=== PATIENT | female | born 1940 | race Caucasian/White ===

== ENCOUNTER 2017-09-02 09:16 | Emergency (ER) | payer MEDICARE, BC ==
[~2017-09-02] VITALS: Ht 157.5 cm; Wt 113.9 kg
[~2017-09-02 09:16] MED LIST: ALLO100T PO; ASPI-482 PO; ATEN50TA PO; CARV3.12 PO; CLOP75TA57 PO; COLC25PO PO; FENO48TA16 PO; HYDR25TA9 PO; METF500T4 PO; OMEP20TA8 PO; TICA90TA PO
--- NOTE | 2017-09-02 09:19 | PHYS DOC ---
Past Medical History Past Medical History: Diabetes-Type II, Heart Disease, Hypertension Additional Past Medical Histor: REFLUX, DIABETIC,HTN, GOUT, CIRROSSIS Past Surgical History: Other Additional Past Surgical Histo: Cardiac stent placed Alcohol Use: None Drug Use: None Adult General Chief Complaint Chief Complaint: HYPERTENSION HPI HPI Patient is a 77 year old female who presents with elevated blood pressure and celiac she's to pass out last night. She said this happened around 11:00 she tried to stand up she got very lightheaded dizzy her boyfriend helped her to the floor, she had to crawl to the bed and then she called the bed and felt better. She refused to be taken to the ER at that time. This morning she got up she felt better she had a mild headache that she states is in the posterior aspect of her head, she checked her blood pressure this morning it was in the 150/1002, and the third time was 180/103. She took 2 of her hydrochlorothiazide tablets and 2 of her Norvasc tablets. Her Hydrocort thiazide her 25 mg and her Norvasc is 2.5. She presents to ER with no other complaints. She denies any chest pain shortness of breath nausea vomiting lightheadedness dizziness. She does have her chronic arthritis pain in her right hand and left shoulder but she states that's normal for her. Her blood pressure upon arrival is 135/80. Review of Systems Review of Systems Constitutional: Denies fever or chills [] Eyes: Denies change in visual acuity, redness, or eye pain [] HENT: Denies nasal congestion or sore throat [] Respiratory: Denies cough or shortness of breath [] Cardiovascular: No additional information not addressed in HPI [] GI: Denies abdominal pain, nausea, vomiting, bloody stools or diarrhea [] : Denies dysuria or hematuria [] Musculoskeletal: Denies back pain, positive for multiple joint pains secondary to arthritis. Integument: Denies rash or skin lesions [] Neurologic: Denies headache, focal weakness or sensory changes [] Endocrine: Denies polyuria or polydipsia [] Current Medications Current Medications Current Medications Medications (Trade) Dose Ordered Sig/Ryan Start Time Stop Time Status Last Admin Dose Admin Magnesium Sulfate/ Dextrose 100 ml @ 100 mls/hr 1X ONCE 09/02/17 11:30 09/02/17 12:29 Allergies Allergies Allergies Coded Allergies Type Severity Reaction Last Updated Verified bilastine Allergy Unknown "I couldn't breathe. I was so short of breath." 02/15 Yes Physical Exam Physical Exam Constitutional: Well developed, well nourished, no acute distress, non-toxic appearance. [] HENT: Normocephalic, atraumatic, bilateral external ears normal, oropharynx moist, no oral exudates, nose normal. [] Eyes: PERRLA, EOMI, conjunctiva normal, no discharge. [] Neck: Normal range of motion, no tenderness, supple, no stridor. [] Cardiovascular:Heart rate regular rhythm, no murmur [] Lungs & Thorax: Bilateral breath sounds clear to auscultation [] Abdomen: Bowel sounds normal, soft, no tenderness, no masses, no pulsatile masses. [] Skin: Warm, dry, no erythema, no rash. [] Back: No tenderness, no CVA tenderness. [] Extremities: No tenderness, no cyanosis, no clubbing, ROM intact, no edema. [] Neurologic: Alert and oriented X 3, normal motor function, normal sensory function, no focal deficits noted. [] Psychologic: Affect normal, judgement normal, mood normal. [] Current Patient Data Vital Signs Vital Signs Date Time Temp Pulse Resp B/P (MAP) Pulse Ox O2 Delivery O2 Flow Rate FiO2 09/02/17 10:32 85 20 97 09/02/17 09:31 97.9 137/81 (99) Room Air 97.9 Lab Values Laboratory Tests Test 09/02/17 10:25 09/02/17 10:35 White Blood Count 12.9 x10^3/uL (4.0-11.0) H Red Blood Count 4.04 x10^6/uL (3.50-5.40) Hemoglobin 12.1 g/dL (12.0-15.5) Hematocrit 37.7 % (36.0-47.0) Mean Corpuscular Volume 93 fL (79-100) Mean Corpuscular Hemoglobin 30 pg (25-35) Mean Corpuscular Hemoglobin Concent 32 g/dL (31-37) Red Cell Distribution Width 15.7 % (11.5-14.5) H Platelet Count 170 x10^3/uL (140-400) Neutrophils (%) (Auto) 86 % (31-73) H Lymphocytes (%) (Auto) 8 % (24-48) L Monocytes (%) (Auto) 4 % (0-9) Eosinophils (%) (Auto) 2 % (0-3) Basophils (%) (Auto) 0 % (0-3) Neutrophils # (Auto) 11.1 x10^3uL (1.8-7.7) H Lymphocytes # (Auto) 1.0 x10^3/uL (1.0-4.8) Monocytes # (Auto) 0.5 x10^3/uL (0.0-1.1) Eosinophils # (Auto) 0.2 x10^3/uL (0.0-0.7) Basophils # (Auto) 0.0 x10^3/uL (0.0-0.2) Platelet Estimate Pending Sodium Level 138 mmol/L (136-145) Potassium Level 4.4 mmol/L (3.5-5.1) Chloride Level 100 mmol/L (98-107) Carbon Dioxide Level 28 mmol/L (21-32) Anion Gap 10 (6-14) Blood Urea Nitrogen 27 mg/dL (7-20) H Creatinine 1.0 mg/dL (0.6-1.0) Estimated GFR (Cockcroft-Gault) 53.9 Glucose Level 217 mg/dL (70-99) H Calcium Level 9.7 mg/dL (8.5-10.1) Magnesium Level 1.3 mg/dL (1.8-2.4) L Total Bilirubin 0.4 mg/dL (0.2-1.0) Direct Bilirubin 0.1 mg/dL (0.0-0.2) Aspartate Amino Transferase (AST) 20 U/L (15-37) Alanine Aminotransferase (ALT) 40 U/L (14-59) Alkaline Phosphatase 84 U/L (46-116) Creatine Kinase 152 U/L (26-192) Creatine Kinase MB (Mass) 3.4 ng/mL (0.0-3.6) Creatine Kinase MB Relative Index 2.2 % (0-4) Troponin I Quantitative < 0.017 ng/mL (0.000-0.055) EN-Wvi-W-Type Natriuretic Peptide 120 pg/mL (0-449) Total Protein 7.3 g/dL (6.4-8.2) Albumin 3.9 g/dL (3.4-5.0) Thyroid Stimulating Hormone (TSH) 1.914 uIU/mL (0.358-3.74) Urine Collection Type Unknown Urine Color Yellow Urine Clarity Clear Urine pH 5.5 Urine Specific [place] 1.025 Urine Protein Negative mg/dL (NEG-TRACE) Urine Glucose (UA) Negative mg/dL (NEG) Urine Ketones (Stick) Negative mg/dL (NEG) Urine Blood Negative (NEG) Urine Nitrite Negative (NEG) Urine Bilirubin Negative (NEG) Urine Urobilinogen Dipstick 0.2 mg/dL (0.2 mg/dL) Urine Leukocyte Esterase Negative (NEG) Urine RBC 0 /HPF (0-2) Urine WBC 0 /HPF (0-4) Urine Squamous Epithelial Cells Mod /LPF Urine Bacteria 0 /HPF (0-FEW) Urine Mucus Mod /LPF Urine Opiates Screen Neg (NEG) Urine Methadone Screen Neg (NEG) Urine Barbiturates Neg (NEG) Urine Phencyclidine Screen Neg (NEG) Urine Amphetamine/Methamphetamine Neg (NEG) Urine Benzodiazepines Screen Neg (NEG) Urine Cocaine Screen Neg (NEG) Urine Cannabinoids Screen Neg (NEG) Urine Ethyl Alcohol Neg (NEG) Laboratory Tests 09/02/17 10:25 Laboratory Tests 09/02/17 10:25 EKG EKG EKG shows sinus rhythm rate [address] elevations or concerning T- wave inversions, left axis deviation noted, QTC 440 ms, as interpreted by me. Radiology/Procedures Radiology/Procedures [facility] [address] [place] [address] IMAGING REPORT Signed PATIENT: JOANN GARCÍA ACCOUNT: [id number] : 1940 LOCATION: ER AGE: 77 SEX: F EXAM STATUS: PRE ER ORD. PHYSICIAN: TREASURE BECERRIL MD REASON: htn PROCEDURE: PORTABLE CHEST 1V Portable chest, 09/02/2017: History: Hypertension Comparison is made to a study from 12/05/2013. The heart size and pulmonary vascularity are normal. There is calcific plaquing of the aorta. No pulmonary infiltrates are seen. There is no evidence of pleural fluid. Moderate degenerative change is present at the left glenohumeral articulation. IMPRESSION: No acute cardiopulmonary abnormality is detected. DICTATED and SIGNED BY: ERIKA CASTANEDA MD DATE: 09/02/1747 CC: TREASURE BECERRIL MD; SARAH ALVES ~ Impressions: Hypertension Hypomagnesemia Course & Med Decision Making Course & Med Decision Making Pertinent Labs and Imaging studies reviewed. (See chart for details) Labs showed her magnesium to be slightly low. She received 1 g IV magnesium and she's being discharged home. Return precautions given. She is to follow-up with primary care physician within the week. Her blood pressures in the ER have been within normal limits entire time. I long conversation about her not increasing her HCTZ when her blood pressures elevated. Dragon Disclaimer Dragon Disclaimer This electronic medical record was generated, in whole or in part, using a voice recognition dictation system. Departure Departure Impression: Primary Impression: Hypertension Disposition: 01 HOME, SELF-CARE Condition: STABLE Referrals: SARAH ALVES (PCP) Patient Instructions: Hypertension Additional Instructions: Your blood pressures in the emergency Department have been within normal limits. Your blood work other than your magnesium did not show any acute abnormalities. We gave you IV magnesium and would like to go home. You should follow-up with your primary care physician within the next week. Return ER if he felt lightheaded dizzy, you have chest pain, he felt like you to pass out or you have other concerns. Problem Qualifiers Primary Impression: Hypertension Hypertension type: unspecified Qualified Codes: I10 - Essential (primary) hypertension TREASURE BECERRIL MD Sep 02, 2017 09:19
--- NOTE | 2017-09-02 09:50 | RAD ---
Portable chest, 09/02/2017: History: Hypertension Comparison is made to a study from 12/05/2013. The heart size and pulmonary vascularity are normal. There is calcific plaquing of the aorta. No pulmonary infiltrates are seen. There is no evidence of pleural fluid. Moderate degenerative change is present at the left glenohumeral articulation. IMPRESSION: No acute cardiopulmonary abnormality is detected.
[2017-09-02 10:44] LABS: BASO % 0 % (0-3); EOS % 2 % (0-3); HEMATOCRIT 37.7 % (36.0-47.0); HEMOGLOBIN 12.1 g/dL (12.0-15.5); LYMPH % 8 % (24-48); MEAN CORPUSCULAR HEMOGLOBIN 30 pg (25-35); MEAN CORPUSCULAR HGB CONC 32 g/dL (31-37); MEAN CORPUSCULAR VOLUME 93 fL (79-100); MONO % 4 % (0-9); NEUT % 86 % (31-73); PLATELET COUNT 170 x10^3/uL (140-400); RED BLOOD COUNT 4.04 x10^6/uL (3.50-5.40); RED CELL DISTRIBUTION WIDTH 15.7 % (11.5-14.5); WHITE BLOOD COUNT 12.9 x10^3/uL (4.0-11.0)
[2017-09-02 10:58] LABS: BARBITURATES NEG (NEG); BENZODIAZEPINES NEG (NEG); BILIRUBIN,URINE NEGATIVE (NEG); CANNABINOIDS NEG (NEG); COCAINE NEG (NEG); GLUCOSE,URINE NEGATIVE (NEG); METHADONE NEG (NEG); NITRITE,URINE NEGATIVE (NEG); OPIATES NEG (NEG); PH,URINE 5.5; PHENCYCLIDINE NEG (NEG); PROTEIN,URINE NEGATIVE (NEG-TRACE); UROBILINOGEN,URINE 0.2 mg/dL (0.2 mg/dL)
[2017-09-02 11:05] LABS: CALCIUM 9.7 mg/dL (8.5-10.1); GFR 53.9; POTASSIUM 4.4 mmol/L (3.5-5.1)
[2017-09-02 11:09] LABS: ALBUMIN 3.9 g/dL (3.4-5.0); DIRECT BILIRUBIN 0.1 mg/dL (0.0-0.2); MAGNESIUM 1.3 mg/dL (1.8-2.4); TOTAL BILIRUBIN 0.4 mg/dL (0.2-1.0); TOTAL PROTEIN 7.3 g/dL (6.4-8.2)
[2017-09-02 11:16] LABS: CKMB MASS 3.4 ng/mL (0.0-3.6)
[2017-09-02 11:25] LABS: RBC,URINE 0 /HPF (0-2)
[2017-09-02 11:26] LABS: BACTERIA,URINE 0 /HPF (0-FEW); SQUAMOUS EPITHELIAL CELL,UR MOD /LPF; WBC,URINE 0 /HPF (0-4)
[2017-09-02] MEDS ORDERED: MAGNESIUM SULFATE 1GM 100 ML IV ONE (11:30)
[2017-09-02 11:57] VITALS: BP 112/61
--- NOTE | 2017-09-02 12:37 | EKG ---
[facility] [address] [place] [address] Test Date: 2017-09-02 Test Time: 09:47:54 Pat Name: JOANN GARCÍA Department: Room: Gender: F Lead Former: : 1940 Requested By: TREASURE BECERRIL Order Number: [id number] Reading MD: Measurements Intervals [place] Rate: 91 P: 24 SC: 176 QRS: -13 QRSD: 88 T: 56 QT: 356 QTc: 440 Interpretive Statements SINUS RHYTHM LEFTWARD AXIS QRS(T) CONTOUR ABNORMALITY CONSISTENT WITH ANTEROSEPTAL INFARCT AGE UNDETERMINED CONSISTENT WITH INFERIOR INFARCT PROBABLY OLD ABNORMAL ECG RI6.01 No previous ECG available for comparison
[2017-09-02 12:56] LABS: % EOS 1 % (0-5)
[2017-09-02 12:57] LABS: PLT ESTIMATE ADEQUATE (ADEQUATE)
== END 2017-09-02 12:50 | disposition home or self-care (01) ==
LOC: ER 09:16
DX: I11.9 Hypertensive heart disease without heart failure (principal); E83.42 Hypomagnesemia; I51.9 Heart disease, unspecified; M10.9 Gout, unspecified; E11.9 Type 2 diabetes mellitus without complications; K21.9 Gastro-esophageal reflux disease without esophagitis; M13.812 Other specified arthritis, left shoulder; M13.841 Other specified arthritis, right hand; Z95.5 Presence of coronary angioplasty implant and graft; Z88.8 Allergy status to other drugs, medicaments and biological substances
CPT/HCPCS: 36415; 71010; 80048; 80076; 80307; 81001; 82553; 83735; 83880; 84443; 84484; 85007; 85025; 93005; 96365; 99285; J3475; G0479

== ENCOUNTER → 2018-11-11 | Outpatient (CLI) | payer MEDICARE, BC ==
[~2018-11-11] MED LIST changes: +HYDR-2145 PO; -HYDR25TA9 PO; +METF500T16 PO; -METF500T4 PO
--- NOTE | 2018-11-11 10:23 | CARD ---
MR#: [id number] Date of Study: 11/11/2018 Ordering Physician: DUANE BLUNT, Referring Physician: DUANE BLUNT Tech: Delaney Hammond RDCS APPROVED REPORT EXAM: Two-dimensional and M-mode echocardiogram with Doppler and color Doppler. Other Information Quality : Good INDICATION Cardiac Disease: CAD 2D DIMENSIONS RVDd3.0 (2.9-3.5cm)Left Atrium(2D)4.1 (1.6-4.0cm) IVSd1.2 (0.7-1.1cm)Aortic Root(2D)3.0 (2.0-3.7cm) LVDd4.8 (3.9-5.9cm)LVOT Diameter2.3 (1.8-2.4cm) PWd1.1 (0.7-1.1cm)LVDs2.8 (2.5-4.0cm) FS (%) 30.0 %SV75.2 ml LVEF(%)60.0 (>50%) Aortic Valve AoV Peak Rinku.149.9cm/sAoV VTI30.4cm AO Peak GR.9.0mmHgLVOT Peak Rinku.92.9cm/s LVOT VTI 21.47cmAO Mean GR.5mmHg ANNMARIE (VMAX)2.15kj1ZHS (VTI)2.96cm2 Mitral Valve MV E Jnefydan06.0cm/sMV DECEL [id number] MV A Rmeheipd691.5cm/sMV [id number] E/A Ratio0.8MVA (PHT)2.59cm2 TDI E/Lateral E'17.3E/Medial E'15.3 Tricuspid Valve TR P. Ltebllpq587ac/sRAP [id number] TR Peak Gr.12jyDuIHGI31cpSs Pulmonary Vein S1 Hxvmbari59.2cm/sD2 Xpfzyasj01.9cm/s LEFT VENTRICLE The left ventricle is normal size. There is mild concentric left ventricular hypertrophy. The left ve ntricular systolic function is normal and the ejection fraction is within normal range. The Ejection Fraction is 55-60%. There is normal LV segmental wall motion. Transmitral Doppler flow pattern is Gra de I-abnormal relaxation pattern. RIGHT VENTRICLE The right ventricle is normal size. The right ventricular systolic function is normal. ATRIA The left atrium is mildly dilated. The right atrium size is normal. The interatrial septum is intact with no evidence for an atrial septal defect or patent foramen ovale as noted on 2-D or Doppler imagi ng. AORTIC VALVE The aortic valve is calcified and not well visualized. Doppler and Color Flow revealed no significant aortic regurgitation. There is no significant aortic valvular stenosis. MITRAL VALVE The mitral valve is calcified but opens well. Mitral annular calcification is mild. There is no evide nce of mitral valve prolapse. There is no mitral valve stenosis. Doppler and Color-flow revealed mild mitral regurgitation. TRICUSPID VALVE The tricuspid valve is normal in structure and function. Doppler and Color Flow revealed mild tricusp id regurgitation. There is mild pulmonary hypertension. The PA pressure was estimated at 32 mmHg. The re is no tricuspid valve stenosis. PULMONIC VALVE The pulmonic valve is not well visualized. Doppler and Color Flow revealed trace to mild pulmonic james vular regurgitation. There is no pulmonic valvular stenosis. GREAT VESSELS The aortic root is normal in size. The ascending aorta is mildly dilated 3.6 cm. The IVC is normal in size and collapses >50% with inspiration. PERICARDIAL EFFUSION There is no evidence of significant pericardial effusion. Critical Notification Critical Value: No <Conclusion> The left ventricular systolic function is normal and the ejection fraction is within normal range. Th e Ejection Fraction is 55-60%. There is normal LV segmental wall motion. The ascending aorta is mildly dilated 3.6 cm. Signed by : Andrew Leija, Electronically Approved : 11/11/2018 10:21:35
== END | disposition home or self-care (01) ==
LOC: ECHO 08:54
PROVIDERS: ATTEND Internal Medicine Cardiovascular Disease
DX: I08.1 Rheumatic disorders of both mitral and tricuspid valves (principal); I27.20 Pulmonary hypertension, unspecified; I25.10 Atherosclerotic heart disease of native coronary artery without angina pectoris
CPT/HCPCS: 93306